=== PATIENT | male | born 1950 | race Caucasian/White ===

== ENCOUNTER 2019-10-28 09:37 | Outpatient (CLI) | payer MEDICARE, OTHER, SELFPAY ==
[2019-10-28 09:50] VITALS: BP 160/82; PULSE 78; RESP 16; TEMP 37; O2SAT 100
[2019-10-28 11:23] VITALS: BP 165/96; PULSE 86; RESP 15; O2SAT 100
--- NOTE | 2019-10-28 11:35 | DI.RAD_ITS ---
EXAM: XR PAIN CLINIC SACROILIAC 2V CLINICAL HISTORY: DX: SACROILIAC JOINT DYSFUNCTION. TECHNIQUE: Fluoroscopy was provided for the referring physician for guidance with performing injecti on procedure. COMPARISON: No exams were available for comparison FINDINGS: Please see procedure note for details. Fluoro Time: 110.7 seconds
[2019-10-28] MEDS: methylPREDNISolone ACETATE 40 MG/ML VIAL IJ (12:05)
[2019-10-28] MEDS: Bupivacaine 0.5% Pres-Free 10 ML VIAL IJ (12:05)
[2019-10-28] MEDS: Lidocaine 2% Pres-Free 5 ML VIAL IJ (12:05)
--- NOTE | 2019-10-28 12:13 | PDOC.PAIN_ITS ---
Pain Clinic Procedure Note Procedure Note Procedure Note: LUMBAR/SACRAL MEDIAL BRANCH RADIOFREQUENCY DRISS FU has been referred [facility] for radiofrequency treatment of chronic axial back pain. DRISS has had long standing back pain thought to be facet joint generated and which has been refractory to other therapies. Local anesthetic medial branch blocks or intra-articular facet joint injections resulted in DRISS reporting reduction of the usual axial component of pain for at least the duration of the local anesthetic effect. COMMENTS: [] Patient was interviewed and the medical record reviewed. There were no medical, pharmacologic, radiographic or other structural contraindications to attempting fluoroscopically guided radiofrequency treatment. Risks and expected side effects as well as potential benefit of the procedure were reviewed and voiced concerns addressed. The printed consent form was signed and witnessed. Standard time-out procedure was performed. Patient was placed in the prone position on the fluoroscopy table and automated blood pressure cuff and pulse oximeter applied. The skin entry points for approaching the anatomic target points of the segmental medial branches of {right/left/bilateral:11184}{ANATOMY} were identified with fluoroscopy and marked. Following thorough Chlorhexadine preparation of the skin and draping and 1% lidocaine infiltration of the skin en try points and subcutaneous tissues, a single 18 guage curved 10 cm 10mm active tip radiofrequency cannula was placed under fluoroscopic guidance along or acr oss the anatomic course of each respective segmental medial branch. Each placement was stimulated at 50Hz and les then 0.5V for medial branch sensory localization and the at 2Hz and up to 3 times the sensory voltage without any evidence of distal myotomal stimulation. 1cc of 1% ;idocaine was injected at each site. At each placement a continuous mode radiofrequency treatment was done at 90 degrees C for 90secs and then rotated 180degrees and then repeated. This radiofrequency treatment should result in the denervation of the [right/left/bilateral] [FACET JOINTS].~ A total of [Numbers] facets were expected to be denervated from today's treatment. Vital signs were stable throughout the procedure and were as recorded in the docflowsheet by the nursing staff. If given, dosages of intravenous drugs for anxiolysis and analgesia were documented in the Medication Administration Record (MAR). Follow up plans and appointments were discussed. Post procedure instruction was given as documented in the nursing documentation and having met discharge criteria, DRISS was [facility] from the [facility]. COMMENTS: [] CC: Tho Ordonez
--- NOTE | 2019-10-28 12:20 | PDOC.PAIN ---
Pain Clinic Procedure Note Procedure Note Procedure Note: Left Lumbosacral Radiofrequency with Coolief Machine PROCEDURE NOTE Date of Service: October 28, 2019 Patient: DRISS FU Provider: Tavo Alvarenga DO, MPH Pre Operative Diagnosis: Left sacroiliac joint dysfunction Post Operative Diagnosis: PROCEDURE: Radiofrequency Ablation of medial branches - LT L4 L5DR, and the lateral branches of the left S1, S2, and S3. DRISS FU was brought into the fluoroscopy suite and positioned into the prone position on the fluoroscopy table and allowed to adjust to a position of comfort. A grounding pad was placed on the left thigh. The lumbar region was widely prepped with a chloraprep solution, allowed to air dry and draped in standard sterile surgical fashion. Local anesthesia was provided by 1 mL of 2 % Lidocaine delivered with a 25g 1.5 needle. A 17g 75mm radiofrequency introducer needle was placed to the planned anatomic targets guided with intermittent fluoroscopy with a perpendicular approach to terminally place at the junction of the superior articular process and the transverse process of the left L4 and the base of the sacral ala on the [left for the L5 medial branch nerve, then around the S1-S3 neuroforamina to ablate the Left S1-S3 lateral branches. The stylets were removed and radiofrequency probes with a 4mm active tip were then inserted. Needle tip position of the probes was verified in the AP, oblique, and lateral views. At each site, the medial branch nerve was stimulated at 2 Hz to a maximum 1-2 volts determined to finalize safe needle and electrode placement. The patient was awake and responsive during this portion of the procedure. Each target was anesthetized with 1-2 mL of 2 % Lidocaine for anesthesia for lesioning and then each target was lesioned at 80 degrees Celsius for 2 minutes and 30 seconds. Tissue impedences were noted to be between 250 and 500 Ohms. Electrodes and needles were then removed and bandages placed over the needle placement sites, the patient then returned to the supine position on a stretcher and transported to the recovery room without hemodynamic, neurologic, or allergic reactions. Fluoroscopic images were printed for hard copy recording and digitally archived. POST PROCEDURE EVALUATION: IMPRESSION: 1. Left sacroiliac joint dysfunction Follow up plans and appointments were discussed with the DRISS . Post procedure instruction was given as documented in nursing documentation and having met discharge criteria, DRISS was discharged from the [facility]. COMMENTS: No complications. F/U with our office as needed. I personally performed this entire procedure. Tavo Alvarenga DO, MPH Attending Physician
== END 2019-10-28 09:57 ==
PROVIDERS: PCP Internal Medicine; Visit Provider Preventive Medicine Occupational Medicine
DX: M53.3 Sacrococcygeal disorders, not elsewhere classified (principal)
CPT/HCPCS: 64640 ×3; 72200; J1030